=== PATIENT | female | born 1970 | race Caucasian/White ===

== ENCOUNTER 2020-01-14 06:20 | Observation (INO) ==
[2020-01-14] MEDS ORDERED: *HR* Methadone 5 MG TABLET PO ONE (06:40)
[2020-01-14] MEDS ORDERED: Gabapentin 300 MG CAPSULE PO ONE (06:40)
[2020-01-14] MEDS ORDERED: CeFAZolin Syr 2,000MG/20 ML 2,000 MG/20 ML SYRINGE IVPB ONE (07:03)
[2020-01-14] MEDS ORDERED: Promethazine Syrup 6.25 MG/5 ML PO PRN (07:04)
[2020-01-14] MEDS ORDERED: *HR* OxyCODONE Immed Rel 5 MG TABLET PO PRN (07:04)
[2020-01-14] MEDS ORDERED: *HR* Labetalol 20 MG/4 ML SYRINGE IVP PRN (07:04)
[2020-01-14] MEDS ORDERED: Ondansetron 4 MG/2 ML VIAL IVP PRN ×2 (07:04→12:28)
[2020-01-14] MEDS ORDERED: Mannitol 20% 100 GM/500 ML IV.SOLN IVC ONE (07:07)
[2020-01-14] MEDS ORDERED: *HR* Midazolam HCl 2 MG/2 ML VIAL ONE (07:12)
[2020-01-14] MEDS ORDERED: *HR* Propofol 200 MG/20 ML VIAL IVP ONE (07:12)
[2020-01-14] MEDS ORDERED: *HR* FentaNYL (PF) 100 MCG/2 ML VIAL ONE ×2 (07:12→08:32)
[2020-01-14] MEDS: Ringers Solution, Lactated 1,000 ML IVC SCH ×2 (07:27→09:07)
[2020-01-14] MEDS ORDERED: Ondansetron 4 MG/2 ML VIAL ONE (08:27)
[2020-01-14] MEDS ORDERED: Lidocaine -MPF 2% 2 ML VIAL ONE (08:27)
[2020-01-14] MEDS ORDERED: *HR* Rocuronium Bromide 50 MG/5 ML VIAL ONE (08:27)
[2020-01-14] MEDS ORDERED: Dexamethasone 4 MG/ML VIAL ONE (08:27)
[2020-01-14] MEDS ORDERED: *HR* HYDROMORPHONE 2 MG/ML VIAL ONE (10:17)
[2020-01-14] MEDS ORDERED: Neostigmine Methylsulfate 3 MG/3 ML SYRINGE ONE (10:42)
[2020-01-14] MEDS ORDERED: Insulin LISPRO 300 UNITS/3 ML VIAL SQ ONE (11:26)
[2020-01-14] MEDS: *HR* HYDROmorphone (PF) 1 MG/ML SYRINGE IVP PRN ×2 (11:33→11:43)
[2020-01-14] MEDS ORDERED: Acetaminophen 325 MG TABLET PO PRN (12:28)
[2020-01-14] MEDS ORDERED: Naloxone 0.4 MG/ML INJ IVP PRN (12:28)
[2020-01-14] MEDS ORDERED: *HR* OxyCODONE/APAP 5/325 TABLET PO PRN (12:28)
[2020-01-14] MEDS: Gabapentin 300 MG CAPSULE PO SCH ×3 (13:44→21:13)
[2020-01-14] MEDS: 0.9 % Sodium Chloride 1,000 ML IVC SCH ×2 (13:48→23:49)
[2020-01-14] MEDS: CeFAZolin 2 GM/120 ML BAG IVPB SCH (15:56)
[2020-01-14] MEDS: *HR* Heparin 5,000 UNIT/ML VIAL SQ SCH (17:07)
[2020-01-14] MEDS: Orphenadrine 100 MG TABLET.ER PO SCH (21:13)
[2020-01-15] MEDS: CeFAZolin 2 GM/120 ML BAG IVPB SCH (00:43)
[2020-01-15 04:46] LABS: Basophils % 0.3 %; Eosinophils # 0.1 K/mcL (0.0-0.6); Eosinophils % 1.1 %; Hematocrit 32.4 % (35.3-44.9); Hemoglobin 10.5 g/dL (11.5-15.4); Immature Granulocytes % 0.3 % (0-4); Lymphocytes # 3.8 K/mcL (0.6-4.6); Lymphocytes % 32.5 %; Mean Corpuscular HGB Conc 32.4 g/dL (31.6-35.5); Mean Corpuscular Hemoglobin 30.3 pg (28.0-33.3); Mean Corpuscular Volume 93.6 fL (83.0-100.0); Monocytes # 0.9 K/mcL (0.0-1.3); Monocytes % 7.4 %; Neutrophils # 6.9 K/mcL (1.6-8.9); Nucleated Red Blood Cells 0.2 /100 WBC (0); Platelet Count 318 K/mcL (140-400); Red Blood Count 3.46 M/mcL (3.82-4.97); Red Cell Distribution Width 12.8 % (11.5-14.5); Segmented Neutrophils % 58.4 %; White Blood Count 11.7 K/mcL (4.3-11.1)
[2020-01-15 05:06] LABS: BUN/Creatinine Ratio 14 (6-26); Blood Urea Nitrogen 11 mg/dL (6-20); Calcium 8.2 mg/dL (8.6-10.3); Carbon Dioxide 25 mEq/L (23-29); Chloride 104 mEq/L (98-107); Glucose 106 mg/dL (70-105); Osmolality,Calculated 278 (280-300); Potassium 3.7 mEq/L (3.5-5.1); Sodium 134 mEq/L (136-145); eGFR For African Americans > 60 (> 60); eGFR For Non-African Americans > 60 (> 60)
[2020-01-15] MEDS: *HR* Heparin 5,000 UNIT/ML VIAL SQ SCH ×2 (05:46→17:02)
[2020-01-15] MEDS ORDERED: Bisacodyl 10 MG RECTAL SUPPOSITORY RC PRN (07:16)
[2020-01-15] MEDS: Orphenadrine 100 MG TABLET.ER PO SCH ×2 (07:22→19:59)
[2020-01-15] MEDS: Gabapentin 300 MG CAPSULE PO SCH ×4 (07:22→19:59)
[2020-01-15] MEDS: 0.9 % Sodium Chloride 1,000 ML IVC SCH (22:10)
[2020-01-16] MEDS: *HR* Heparin 5,000 UNIT/ML VIAL SQ SCH (05:35)
[2020-01-16 06:31] LABS: Hemoglobin 11.5 g/dL (11.5-15.4)
[2020-01-16] MEDS: Orphenadrine 100 MG TABLET.ER PO SCH (09:41)
[2020-01-16] MEDS: Gabapentin 300 MG CAPSULE PO SCH (09:42)
[2020-01-16 10:25] VITALS: BP 138/86
== END 2020-01-16 14:03 | disposition home or self-care (01) ==
LOC: SAMDAY 06:20 → 3ANU 06:20
PROVIDERS: ADMIT Urology; ATTEND Urology

== ENCOUNTER 2020-02-26 18:12 | Observation (INO) ==
[2020-02-26] MEDS ORDERED: Piperacillin/Tazobactam 3.375 GM in Water for inj. (sterile) 20 ML IVP ONE (20:38)
[2020-02-26] MEDS ORDERED: Morphine Sulfate 2 MG/ML SYRINGE IVP ONE (20:40)
[2020-02-26] MEDS ORDERED: Ondansetron 4 MG/2 ML VIAL IVP ONE (20:40)
[2020-02-26 21:18] LABS: Basophils # 0.1 K/mcL (0.0-0.2); Basophils % 0.7 %; Eosinophils # 0.3 K/mcL (0.0-0.6); Eosinophils % 2.9 %; Hematocrit 39.9 % (35.3-44.9); Hemoglobin 13.3 g/dL (11.5-15.4); Immature Granulocytes % 0.2 % (0-4); Lymphocytes % 38.8 %; Mean Corpuscular HGB Conc 33.3 g/dL (31.6-35.5); Mean Corpuscular Hemoglobin 31.3 pg (28.0-33.3); Mean Corpuscular Volume 93.9 fL (83.0-100.0); Mean Platelet Volume 8.6 fL (9.4-12.4); Monocytes # 0.9 K/mcL (0.0-1.3); Monocytes % 8.9 %; Platelet Count 425 K/mcL (140-400); Red Blood Count 4.25 M/mcL (3.82-4.97); Red Cell Distribution Width 13.6 % (11.5-14.5); Segmented Neutrophils % 48.5 %; White Blood Count 10.4 K/mcL (4.3-11.1)
[2020-02-26 21:25] LABS: INR 1.1; Prothrombin Time 12.6 Seconds (9.4-12.1)
[2020-02-26 21:40] LABS: Alanine Aminotransferase 13 Units/L (7-52); Albumin/Globulin Ratio 1.2 (1.1-2.2); Alkaline Phosphatase 116 Units/L (34-104); Aspartate Amino Transferase 15 Units/L (13-39); BUN/Creatinine Ratio 16 (6-26); Bilirubin,Total 0.3 mg/dL (0.3-1.0); Blood Urea Nitrogen 15 mg/dL (6-20); Calcium 9.5 mg/dL (8.6-10.3); Carbon Dioxide 25 mEq/L (23-29); Chloride 96 mEq/L (98-107); Globulin 3.4 g/dL (2.4-3.5); Glucose 162 mg/dL (70-105); Osmolality,Calculated 272 (280-300); Sodium 129 mEq/L (136-145); Total Protein 7.4 g/dL (6.4-8.9); eGFR For African Americans > 60 (> 60); eGFR For Non-African Americans > 60 (> 60)
[2020-02-26 22:27] LABS: C-Reactive Protein < 5 mg/L (Less than 10)
[2020-02-26] MEDS ORDERED: 0.9 % Sodium Chloride 1,000 ML IVC SCH (23:30)
[2020-02-26] MEDS ORDERED: Dextrose Gel 15 GM/37.5 ML TUBE PO PRN ×2 (23:36)
[2020-02-26] MEDS ORDERED: D5% in Water 1,000 ML IVC PRN (23:36)
[2020-02-26] MEDS ORDERED: Naloxone 0.4 MG/ML INJ IVP PRN (23:36)
[2020-02-26] MEDS ORDERED: Ondansetron 4 MG/2 ML VIAL IVP PRN (23:36)
[2020-02-26] MEDS ORDERED: *HR* Dextrose 50 % in Water (Vial) 50 ML VIAL IVP PRN (23:36)
[2020-02-27] MEDS: *HR* HYDROmorphone (PF) 1 MG/ML SYRINGE IVP PRN ×3 (03:58→19:40)
[2020-02-27] MEDS: Piperacillin/Tazobactam 3.375 GM in 0.9 % Sodium Chloride Mini Bag 100 ML IVPB SCH ×3 (04:11→21:46)
[2020-02-27] MEDS: Insulin LISPRO 300 UNITS/3 ML VIAL SUBQ SCH ×4 (05:42→17:45)
[2020-02-27 05:59] LABS: Hematocrit 36.7 % (35.3-44.9); Hemoglobin 11.8 g/dL (11.5-15.4); Mean Corpuscular HGB Conc 32.2 g/dL (31.6-35.5); Mean Corpuscular Hemoglobin 29.9 pg (28.0-33.3); Mean Corpuscular Volume 93.1 fL (83.0-100.0); Mean Platelet Volume 8.5 fL (9.4-12.4); Platelet Count 355 K/mcL (140-400); Red Blood Count 3.94 M/mcL (3.82-4.97); Red Cell Distribution Width 13.4 % (11.5-14.5)
[2020-02-27 06:35] LABS: BUN/Creatinine Ratio 16 (6-26); Blood Urea Nitrogen 13 mg/dL (6-20); Carbon Dioxide 24 mEq/L (23-29); Chloride 101 mEq/L (98-107); Chol/HDL Ratio 6.6 (0-4.9); Cholesterol 232 mg/dL (< 200); Glucose 139 mg/dL (70-105); HDL Cholesterol 35 mg/dL (40-59); LDL Cholesterol,Calculated 142 mg/dL (< 100); Magnesium 1.6 mg/dL (1.6-2.6); Osmolality,Calculated 274 (280-300); Potassium 4.1 mEq/L (3.5-5.1); Sodium 131 mEq/L (136-145); Triglycerides 274 mg/dL (< 150); eGFR For African Americans > 60 (> 60); eGFR For Non-African Americans > 60 (> 60)
[2020-02-27 10:43] LABS: Estimated Average Glucose 232 mg/dl; Hemoglobin A1C 9.7 %
[2020-02-27] MEDS ORDERED: Isovue-370 500 ML BOTTLE IVP ONE (16:36)
[2020-02-27] MEDS ORDERED: Insulin LISPRO 300 UNITS/3 ML VIAL SUBQ SCH (22:45)
[2020-02-28] MEDS: *HR* HYDROmorphone (PF) 1 MG/ML SYRINGE IVP PRN ×2 (01:57→07:45)
[2020-02-28 02:35] LABS: Hematocrit 37.1 % (35.3-44.9); Hemoglobin 11.8 g/dL (11.5-15.4); Mean Corpuscular HGB Conc 31.8 g/dL (31.6-35.5); Mean Corpuscular Hemoglobin 30.4 pg (28.0-33.3); Mean Corpuscular Volume 95.6 fL (83.0-100.0); Mean Platelet Volume 8.8 fL (9.4-12.4); Platelet Count 369 K/mcL (140-400); Red Blood Count 3.88 M/mcL (3.82-4.97); Red Cell Distribution Width 13.5 % (11.5-14.5)
[2020-02-28 02:53] LABS: BUN/Creatinine Ratio 13 (6-26); Blood Urea Nitrogen 10 mg/dL (6-20); Calcium 8.9 mg/dL (8.6-10.3); Carbon Dioxide 24 mEq/L (23-29); Chloride 99 mEq/L (98-107); Glucose 157 mg/dL (70-105); Osmolality,Calculated 274 (280-300); Potassium 3.9 mEq/L (3.5-5.1); Sodium 131 mEq/L (136-145); eGFR For African Americans > 60 (> 60); eGFR For Non-African Americans > 60 (> 60)
[2020-02-28] MEDS: Piperacillin/Tazobactam 3.375 GM in 0.9 % Sodium Chloride Mini Bag 100 ML IVPB SCH (03:29)
[2020-02-28] MEDS: Insulin LISPRO 300 UNITS/3 ML VIAL SUBQ SCH ×2 (07:49→11:17)
[2020-02-28 14:11] VITALS: BP 146/76
[2020-02-29] MEDS ORDERED: *HR* Enoxaparin 40 MG/0.4 ML SYRINGE SQ SCH (06:00)
== END 2020-02-28 16:00 | disposition home or self-care (01) ==
LOC: 3ANU 18:12 → EMEROOARM 18:12 → 3ANU 02-27 01:09
PROVIDERS: ADMIT Student in an Organized Health Care Education/Training Program; ATTEND Student in an Organized Health Care Education/Training Program

== ENCOUNTER 2020-03-05 08:31 | Inpatient (IN) ==
[~2020-03-05 08:31] MED LIST: Acetaminophen IV 1,000 MG/100 ML BAG IVPB ONE; Famotidine 20 MG/2 ML VIAL IVP ONE
[2020-03-05] MEDS ORDERED: *HR* Midazolam HCl 2 MG/2 ML VIAL ONE (09:00)
[2020-03-05] MEDS ORDERED: *HR* Propofol 200 MG/20 ML VIAL IVP ONE (09:00)
[2020-03-05] MEDS ORDERED: *HR* FentaNYL (PF) 100 MCG/2 ML VIAL ONE (09:00)
[2020-03-05] MEDS ORDERED: *HR* Rocuronium Bromide 50 MG/5 ML VIAL ONE ×2 (09:00→12:06)
[2020-03-05] MEDS ORDERED: Lidocaine -MPF 2% 2 ML VIAL ONE (09:00)
[2020-03-05] MEDS ORDERED: Ondansetron 4 MG/2 ML VIAL ONE (09:00)
[2020-03-05] MEDS ORDERED: Lidocaine -MPF 4% 5 ML AMPUL ONE (09:00)
[2020-03-05] MEDS ORDERED: *HR* Succinylcholine 200 MG/10 ML VIAL IVP ONE (09:00)
[2020-03-05] MEDS ORDERED: CeFAZolin Syr 2,000MG/20 ML 2,000 MG/20 ML SYRINGE IVPB ONE (09:02)
[2020-03-05] MEDS ORDERED: Ringers Solution, Lactated 1,000 ML IVC SCH (09:15)
[2020-03-05] MEDS ORDERED: Heparin 1,000 UNITS/500 mL 500 ML ONE (09:36)
[2020-03-05] MEDS ORDERED: Vancomycin 1,000 MG, Sodium Chloride IRRigation 1,000 ML IR ONE (10:45)
[2020-03-05] MEDS ORDERED: Vancomycin 1,000 MG VIAL ONE (10:57)
[2020-03-05] MEDS ORDERED: *HR* Phenylephrine 10 MG/ML VIAL ONE (11:19)
[2020-03-05] MEDS ORDERED: Albumin Human 5% 12.5 GM/250 ML IV.SOLN ONE (11:26)
[2020-03-05] MEDS ORDERED: *HR* Heparin 5,000 UNIT/ML VIAL ONE ×2 (11:53→13:02)
[2020-03-05] MEDS ORDERED: *HR* HYDROMORPHONE 2 MG/ML VIAL ONE (13:42)
[2020-03-05] MEDS ORDERED: *HR* OxyCODONE Immed Rel 5 MG TABLET PO PRN (14:33)
[2020-03-05] MEDS ORDERED: Ondansetron 4 MG/2 ML VIAL IVP PRN ×2 (14:34→15:58)
[2020-03-05] MEDS: *HR* HYDROmorphone PF 0.5 MG/0.5 ML SYRINGE IVP PRN ×2 (14:40→14:54)
[2020-03-05] MEDS ORDERED: D5% in Water 1,000 ML IVC PRN (15:58)
[2020-03-05] MEDS ORDERED: *HR* Dextrose 50 % in Water (Vial) 50 ML VIAL IVP PRN (15:58)
[2020-03-05] MEDS ORDERED: Acetaminophen 325 MG TABLET PO PRN (15:58)
[2020-03-05] MEDS ORDERED: Dextrose Gel 15 GM/37.5 ML TUBE PO PRN ×2 (15:58)
[2020-03-05] MEDS ORDERED: Naloxone 0.4 MG/ML INJ IVP PRN (15:58)
[2020-03-05] MEDS ORDERED: *HR* Labetalol 20 MG/4 ML SYRINGE IVP PRN (15:58)
[2020-03-05] MEDS ORDERED: 0.9 % Sodium Chloride 1,000 ML IVC SCH (15:58)
[2020-03-05] MEDS: Gabapentin 300 MG CAPSULE PO SCH ×2 (16:27→19:32)
[2020-03-05] MEDS: *HR* Metoprolol 5 MG/5 ML VIAL IVP SCH ×2 (16:27→23:31)
[2020-03-05] MEDS: *HR* HYDROcodone/Acet 5/325 mg TABLET PO PRN ×2 (16:28→23:30)
[2020-03-05] MEDS: Insulin LISPRO 300 UNITS/3 ML VIAL SUBQ SCH (16:41)
[2020-03-05] MEDS: CeFAZolin 2 GM/120 ML BAG IVPB SCH (19:32)
[2020-03-05] MEDS: Orphenadrine 100 MG TABLET.ER PO SCH (19:32)
[2020-03-05] MEDS: *HR* OxyCODONE Immed Rel 5 MG TABLET PO PRN (19:32)
[2020-03-05] MEDS ORDERED: Insulin LISPRO 300 UNITS/3 ML VIAL SUBQ SCH (21:00)
[2020-03-06] MEDS: CeFAZolin 2 GM/120 ML BAG IVPB SCH (02:38)
[2020-03-06] MEDS: *HR* OxyCODONE Immed Rel 5 MG TABLET PO PRN (02:38)
[2020-03-06 04:35] LABS: Basophils % 0.2 %; Eosinophils % 0.3 %; Hematocrit 32.2 % (35.3-44.9); Hemoglobin 10.6 g/dL (11.5-15.4); Immature Granulocytes % 0.2 % (0-4); Lymphocytes # 2.2 K/mcL (0.6-4.6); Lymphocytes % 22.6 %; Mean Corpuscular HGB Conc 32.9 g/dL (31.6-35.5); Mean Corpuscular Hemoglobin 30.9 pg (28.0-33.3); Mean Corpuscular Volume 93.9 fL (83.0-100.0); Mean Platelet Volume 8.9 fL (9.4-12.4); Monocytes # 0.9 K/mcL (0.0-1.3); Monocytes % 9.1 %; Neutrophils # 6.5 K/mcL (1.6-8.9); Platelet Count 361 K/mcL (140-400); Red Blood Count 3.43 M/mcL (3.82-4.97); Red Cell Distribution Width 13.6 % (11.5-14.5); Segmented Neutrophils % 67.6 %; White Blood Count 9.6 K/mcL (4.3-11.1)
[2020-03-06 04:53] LABS: BUN/Creatinine Ratio 19 (6-26); Blood Urea Nitrogen 14 mg/dL (6-20); Calcium 8.3 mg/dL (8.6-10.3); Carbon Dioxide 24 mEq/L (23-29); Chloride 102 mEq/L (98-107); Glucose 277 mg/dL (70-105); Osmolality,Calculated 286 (280-300); Potassium 3.4 mEq/L (3.5-5.1); Sodium 133 mEq/L (136-145); eGFR For African Americans > 60 (> 60); eGFR For Non-African Americans > 60 (> 60)
[2020-03-06] MEDS: *HR* HYDROcodone/Acet 5/325 mg TABLET PO PRN ×2 (05:27→12:28)
[2020-03-06] MEDS: *HR* Metoprolol 5 MG/5 ML VIAL IVP SCH ×2 (05:27→11:15)
[2020-03-06] MEDS ORDERED: *HR* Heparin 5,000 UNIT/ML VIAL SQ SCH ×2 (06:00)
[2020-03-06] MEDS: Insulin LISPRO 300 UNITS/3 ML VIAL SUBQ SCH ×2 (07:58→11:15)
[2020-03-06] MEDS: Gabapentin 300 MG CAPSULE PO SCH ×2 (07:59→12:28)
[2020-03-06] MEDS: Orphenadrine 100 MG TABLET.ER PO SCH (07:59)
[2020-03-06 16:38] VITALS: BP 101/56
== END 2020-03-06 17:00 | disposition home or self-care (01) | DRG 272 ==
LOC: SAMDAY 08:31 → 2NNU 15:29
PROVIDERS: ADMIT Surgery; ATTEND Surgery

== ENCOUNTER 2020-03-23 17:44 | Inpatient (IN) ==
[2020-03-23] MEDS ORDERED: 0.9 % Sodium Chloride 1,000 ML IVC ONE (18:30)
[2020-03-23] MEDS ORDERED: Morphine Sulfate 2 MG/ML SYRINGE IVP ONE (18:32)
[2020-03-23] MEDS ORDERED: Ondansetron 4 MG/2 ML VIAL IVP ONE (18:32)
[2020-03-23 19:09] LABS: Basophils % 0.5 %; Eosinophils # 0.3 K/mcL (0.0-0.6); Eosinophils % 3.9 %; Hematocrit 35.2 % (35.3-44.9); Hemoglobin 11.3 g/dL (11.5-15.4); Immature Granulocytes % 0.1 % (0-4); Lymphocytes # 3.6 K/mcL (0.6-4.6); Lymphocytes % 47.2 %; Mean Corpuscular HGB Conc 32.1 g/dL (31.6-35.5); Mean Corpuscular Hemoglobin 29.4 pg (28.0-33.3); Mean Corpuscular Volume 91.7 fL (83.0-100.0); Mean Platelet Volume 8.7 fL (9.4-12.4); Monocytes # 0.6 K/mcL (0.0-1.3); Neutrophils # 3.1 K/mcL (1.6-8.9); Platelet Count 456 K/mcL (140-400); Red Blood Count 3.84 M/mcL (3.82-4.97); Red Cell Distribution Width 13.4 % (11.5-14.5); Segmented Neutrophils % 40.3 %; White Blood Count 7.6 K/mcL (4.3-11.1)
[2020-03-23 19:30] LABS: Alanine Aminotransferase 9 Units/L (7-52); Albumin 3.4 g/dL (3.5-5.7); Alkaline Phosphatase 107 Units/L (34-104); Aspartate Amino Transferase 13 Units/L (13-39); BUN/Creatinine Ratio 13 (6-26); Bilirubin,Total 0.2 mg/dL (0.3-1.0); Blood Urea Nitrogen 14 mg/dL (6-20); Calcium 9.1 mg/dL (8.6-10.3); Carbon Dioxide 28 mEq/L (23-29); Chloride 98 mEq/L (98-107); Globulin 3.5 g/dL (2.4-3.5); Glucose 255 mg/dL (70-105); Osmolality,Calculated 291 (280-300); Potassium 3.7 mEq/L (3.5-5.1); Sodium 136 mEq/L (136-145); Total Protein 6.9 g/dL (6.4-8.9); eGFR For African Americans > 60 (> 60); eGFR For Non-African Americans 52 (> 60)
[2020-03-23] MEDS ORDERED: Naloxone 0.4 MG/ML INJ IVP PRN (19:51)
[2020-03-23] MEDS ORDERED: Ondansetron 4 MG/2 ML VIAL IVP PRN (19:51)
[2020-03-23] MEDS ORDERED: Piperacillin/Tazobactam 3.375 GM in Water for inj. (sterile) 20 ML IVP ONE (19:52)
[2020-03-23] MEDS ORDERED: 0.9 % Sodium Chloride 1,000 ML IVC SCH (20:00)
[2020-03-23] MEDS ORDERED: D5% in Water 1,000 ML IVC PRN (20:21)
[2020-03-23] MEDS ORDERED: *HR* Dextrose 50 % in Water (Vial) 50 ML VIAL IVP PRN (20:21)
[2020-03-23] MEDS ORDERED: Dextrose Gel 15 GM/37.5 ML TUBE PO PRN ×2 (20:21)
[2020-03-23] MEDS ORDERED: *HR* Heparin 5,000 UNIT/ML VIAL SQ ONE (22:00)
[2020-03-24] MEDS: Insulin LISPRO 300 UNITS/3 ML VIAL SUBQ SCH ×4 (00:22→18:00)
[2020-03-24 01:31] LABS: Basophils # 0.1 K/mcL (0.0-0.2); Basophils % 0.5 %; Eosinophils # 0.4 K/mcL (0.0-0.6); Eosinophils % 3.6 %; Hemoglobin 12.1 g/dL (11.5-15.4); Immature Granulocytes % 0.3 % (0-4); Lymphocytes % 44.6 %; Mean Corpuscular HGB Conc 31.8 g/dL (31.6-35.5); Mean Corpuscular Hemoglobin 29.5 pg (28.0-33.3); Mean Corpuscular Volume 92.7 fL (83.0-100.0); Mean Platelet Volume 9.1 fL (9.4-12.4); Monocytes # 0.7 K/mcL (0.0-1.3); Monocytes % 6.3 %; Platelet Count 479 K/mcL (140-400); Red Cell Distribution Width 13.4 % (11.5-14.5); Segmented Neutrophils % 44.7 %; White Blood Count 11.1 K/mcL (4.3-11.1)
[2020-03-24 01:51] LABS: Platelet Estimate Normal (Normal); Reactive Lymphocytes Present (Not Present)
[2020-03-24 01:52] LABS: Anisocytosis 1+ (Not Present)
[2020-03-24 01:53] LABS: BUN/Creatinine Ratio 14 (6-26); Blood Urea Nitrogen 12 mg/dL (6-20); Calcium 8.9 mg/dL (8.6-10.3); Carbon Dioxide 26 mEq/L (23-29); Chloride 101 mEq/L (98-107); Glucose 144 mg/dL (70-105); Osmolality,Calculated 284 (280-300); Sodium 136 mEq/L (136-145); eGFR For African Americans > 60 (> 60); eGFR For Non-African Americans > 60 (> 60)
[2020-03-24] MEDS: Piperacillin/Tazobactam 3.375 GM in 0.9 % Sodium Chloride Mini Bag 100 ML IVPB SCH ×3 (02:00→18:00)
[2020-03-24] MEDS: Gabapentin 300 MG CAPSULE PO SCH ×3 (14:27→21:30)
[2020-03-24] MEDS: *HR* Heparin 5,000 UNIT/ML VIAL SQ SCH ×2 (14:28→21:30)
[2020-03-25] MEDS: Insulin LISPRO 300 UNITS/3 ML VIAL SUBQ SCH ×4 (00:59→16:21)
[2020-03-25 03:39] LABS: Hemoglobin 11.2 g/dL (11.5-15.4); Mean Corpuscular Hemoglobin 29.9 pg (28.0-33.3); Mean Corpuscular Volume 93.3 fL (83.0-100.0); Mean Platelet Volume 8.4 fL (9.4-12.4); Platelet Count 402 K/mcL (140-400); Red Blood Count 3.75 M/mcL (3.82-4.97); Red Cell Distribution Width 13.2 % (11.5-14.5); White Blood Count 7.9 K/mcL (4.3-11.1)
[2020-03-25] MEDS: Piperacillin/Tazobactam 3.375 GM in 0.9 % Sodium Chloride Mini Bag 100 ML IVPB SCH ×3 (03:39→18:23)
[2020-03-25 04:00] LABS: BUN/Creatinine Ratio 10 (6-26); Blood Urea Nitrogen 6 mg/dL (6-20); Calcium 8.9 mg/dL (8.6-10.3); Carbon Dioxide 27 mEq/L (23-29); Chloride 102 mEq/L (98-107); Glucose 144 mg/dL (70-105); Magnesium 1.5 mg/dL (1.6-2.6); Osmolality,Calculated 280 (280-300); Potassium 3.6 mEq/L (3.5-5.1); Sodium 135 mEq/L (136-145); eGFR For African Americans > 60 (> 60); eGFR For Non-African Americans > 60 (> 60)
[2020-03-25] MEDS: *HR* Heparin 5,000 UNIT/ML VIAL SQ SCH ×3 (05:31→19:48)
[2020-03-25] MEDS ORDERED: Bupivacaine-MPF 0.25% 10 ML VIAL ONE (07:37)
[2020-03-25] MEDS ORDERED: Lidocaine 1% 0 ML ONE (07:37)
[2020-03-25] MEDS ORDERED: Lidocaine -MPF 2% 2 ML VIAL ONE ×2 (07:40→08:38)
[2020-03-25] MEDS ORDERED: *HR* Succinylcholine 200 MG/10 ML VIAL IVP ONE (07:47)
[2020-03-25] MEDS ORDERED: *HR* Propofol 200 MG/20 ML VIAL IVP ONE (08:38)
[2020-03-25] MEDS ORDERED: *HR* FentaNYL (PF) 100 MCG/2 ML VIAL ONE (08:38)
[2020-03-25] MEDS ORDERED: Ondansetron 4 MG/2 ML VIAL IVP PRN (09:03)
[2020-03-25] MEDS ORDERED: *HR* OxyCODONE Immed Rel 5 MG TABLET PO PRN (09:03)
[2020-03-25] MEDS ORDERED: *HR* HYDROmorphone PF 0.5 MG/0.5 ML SYRINGE IVP PRN (09:03)
[2020-03-25] MEDS ORDERED: Acetaminophen IV 1,000 MG/100 ML BAG IVPB ONE ×2 (09:24→09:31)
[2020-03-25] MEDS: Gabapentin 300 MG CAPSULE PO SCH ×4 (10:23→19:47)
[2020-03-25] MEDS ORDERED: Insulin LISPRO 300 UNITS/3 ML VIAL SUBQ SCH (21:00)
[2020-03-26 01:24] LABS: Hematocrit 34.3 % (35.3-44.9); Mean Corpuscular HGB Conc 32.1 g/dL (31.6-35.5); Mean Corpuscular Hemoglobin 29.6 pg (28.0-33.3); Mean Corpuscular Volume 92.5 fL (83.0-100.0); Mean Platelet Volume 8.8 fL (9.4-12.4); Platelet Count 436 K/mcL (140-400); Red Blood Count 3.71 M/mcL (3.82-4.97); Red Cell Distribution Width 13.3 % (11.5-14.5); White Blood Count 9.4 K/mcL (4.3-11.1)
[2020-03-26 01:42] LABS: BUN/Creatinine Ratio 13 (6-26); Blood Urea Nitrogen 10 mg/dL (6-20); Calcium 8.8 mg/dL (8.6-10.3); Carbon Dioxide 27 mEq/L (23-29); Chloride 97 mEq/L (98-107); Glucose 288 mg/dL (70-105); Magnesium 1.7 mg/dL (1.6-2.6); Osmolality,Calculated 282 (280-300); Potassium 4.4 mEq/L (3.5-5.1); Sodium 131 mEq/L (136-145); eGFR For African Americans > 60 (> 60); eGFR For Non-African Americans > 60 (> 60)
[2020-03-26] MEDS: Piperacillin/Tazobactam 3.375 GM in 0.9 % Sodium Chloride Mini Bag 100 ML IVPB SCH ×2 (02:57→13:04)
[2020-03-26] MEDS: *HR* Heparin 5,000 UNIT/ML VIAL SQ SCH ×2 (05:14→13:26)
[2020-03-26] MEDS: Gabapentin 300 MG CAPSULE PO SCH ×3 (07:38→16:44)
[2020-03-26] MEDS: Insulin LISPRO 300 UNITS/3 ML VIAL SUBQ SCH ×3 (08:55→16:46)
[2020-03-26 16:00] VITALS: BP 153/92
== END 2020-03-26 17:07 | disposition home or self-care (01) | DRG 257 ==
LOC: 3NENU 17:44 → EMEROOARM 17:44 → SUATTDRO 20:13 → 3NENU 21:27
PROVIDERS: ADMIT Family Medicine; ATTEND Internal Medicine

== ENCOUNTER 2020-05-21 21:11 | Inpatient (IN) ==
[2020-05-21] MEDS ORDERED: Isovue-370 500 ML BOTTLE IVP ONE (21:34)
[2020-05-21] MEDS ORDERED: *HR* OxyCODONE/APAP 7.5/325 TABLET PO STA (22:08)
[2020-05-21] MEDS ORDERED: Gabapentin 300 MG CAPSULE PO ONE (22:09)
[2020-05-21 22:10] LABS: Basophils % 0.4 %; Eosinophils # 0.2 K/mcL (0.0-0.6); Eosinophils % 1.9 %; Hematocrit 41.2 % (35.3-44.9); Hemoglobin 13.3 g/dL (11.5-15.4); Immature Granulocytes % 0.2 % (0-4); Lymphocytes # 3.2 K/mcL (0.6-4.6); Lymphocytes % 31.2 %; Mean Corpuscular HGB Conc 32.3 g/dL (31.6-35.5); Mean Corpuscular Hemoglobin 29.2 pg (28.0-33.3); Mean Corpuscular Volume 90.5 fL (83.0-100.0); Monocytes # 0.7 K/mcL (0.0-1.3); Monocytes % 7.2 %; Platelet Count 323 K/mcL (140-400); Red Blood Count 4.55 M/mcL (3.82-4.97); Red Cell Distribution Width 14.4 % (11.5-14.5); Segmented Neutrophils % 59.1 %; White Blood Count 10.1 K/mcL (4.3-11.1)
[2020-05-21 22:18] LABS: INR 1.1; Prothrombin Time 12.4 Seconds (9.4-12.1)
[2020-05-21 22:30] LABS: Activated Partial Thrombo Time 31.4 Seconds (26.0-36.0); Alanine Aminotransferase 11 Units/L (7-52); Albumin 3.9 g/dL (3.5-5.7); Albumin/Globulin Ratio 1.1 (1.1-2.2); Alkaline Phosphatase 94 Units/L (34-104); Aspartate Amino Transferase 10 Units/L (13-39); BUN/Creatinine Ratio 16 (6-26); Bilirubin,Indirect 0.3 mg/dL (0.0-1.0); Bilirubin,Total 0.3 mg/dL (0.3-1.0); Blood Urea Nitrogen 12 mg/dL (6-20); Calcium 9.5 mg/dL (8.6-10.3); Carbon Dioxide 27 mEq/L (23-29); Chloride 100 mEq/L (98-107); Globulin 3.5 g/dL (2.4-3.5); Glucose 271 mg/dL (70-105); Osmolality,Calculated 287 (280-300); Potassium 4.3 mEq/L (3.5-5.1); Sodium 134 mEq/L (136-145); Total Protein 7.4 g/dL (6.4-8.9); eGFR For African Americans > 60 (> 60); eGFR For Non-African Americans > 60 (> 60)
[2020-05-21] MEDS ORDERED: *HR* HYDROmorphone (PF) 1 MG/ML SYRINGE IVP STA (23:54)
[2020-05-22] MEDS ORDERED: Ondansetron ODT 4 MG TAB.RAPDIS SL PRN (02:20)
[2020-05-22] MEDS ORDERED: Melatonin 3 MG TABLET PO PRN ×2 (02:20→19:43)
[2020-05-22] MEDS ORDERED: Naloxone 0.4 MG/ML INJ IVP PRN ×3 (02:20→19:43)
[2020-05-22] MEDS ORDERED: Dextrose Gel 15 GM/37.5 ML TUBE PO PRN ×4 (02:24→19:43)
[2020-05-22] MEDS ORDERED: D5% in Water 1,000 ML IVC PRN ×2 (02:24→19:43)
[2020-05-22] MEDS ORDERED: *HR* Dextrose 50 % in Water (Vial) 50 ML VIAL IVP PRN ×2 (02:24→19:43)
[2020-05-22 05:38] LABS: Basophils # 0.1 K/mcL (0.0-0.2); Basophils % 0.5 %; Eosinophils # 0.2 K/mcL (0.0-0.6); Eosinophils % 1.9 %; Hematocrit 42.2 % (35.3-44.9); Hemoglobin 13.2 g/dL (11.5-15.4); Immature Granulocytes % 0.3 % (0-4); Lymphocytes # 4.4 K/mcL (0.6-4.6); Lymphocytes % 38.6 %; Mean Corpuscular HGB Conc 31.3 g/dL (31.6-35.5); Mean Corpuscular Hemoglobin 29.7 pg (28.0-33.3); Mean Corpuscular Volume 94.8 fL (83.0-100.0); Mean Platelet Volume 10.3 fL (9.4-12.4); Monocytes # 0.7 K/mcL (0.0-1.3); Monocytes % 6.5 %; Neutrophils # 5.9 K/mcL (1.6-8.9); Platelet Count 201 K/mcL (140-400); Red Blood Count 4.45 M/mcL (3.82-4.97); Red Cell Distribution Width 14.6 % (11.5-14.5); Segmented Neutrophils % 52.2 %; White Blood Count 11.3 K/mcL (4.3-11.1)
[2020-05-22 05:50] LABS: Prothrombin Time 12.1 Seconds (9.4-12.1)
[2020-05-22 05:52] LABS: Activated Partial Thrombo Time 30.3 Seconds (26.0-36.0)
[2020-05-22] MEDS: Insulin LISPRO 300 UNITS/3 ML VIAL SUBQ SCH ×2 (05:58→11:58)
[2020-05-22] MEDS ORDERED: *HR* HYDROmorphone (PF) 1 MG/ML SYRINGE IVP PRN (06:01)
[2020-05-22 07:04] LABS: BUN/Creatinine Ratio 17 (6-26); Blood Urea Nitrogen 11 mg/dL (6-20); Calcium 9.1 mg/dL (8.6-10.3); Carbon Dioxide 23 mEq/L (23-29); Chloride 101 mEq/L (98-107); Glucose 186 mg/dL (70-105); Osmolality,Calculated 276 (280-300); Potassium 4.3 mEq/L (3.5-5.1); Sodium 131 mEq/L (136-145); eGFR For African Americans > 60 (> 60); eGFR For Non-African Americans > 60 (> 60)
[2020-05-22 08:52] LABS: Estimated Average Glucose 226 mg/dl; Hemoglobin A1C 9.5 %
[2020-05-22] MEDS ORDERED: *HR* Heparin 5,000 UNIT/ML VIAL IVP PRN ×2 (08:52)
[2020-05-22] MEDS ORDERED: *HR* Heparin 5,000 UNIT/ML VIAL IVP ONE (08:52)
[2020-05-22] MEDS ORDERED: Heparin 25,000UNIT/250ML 1/2NS 25,000 UNIT/250 ML IV.SOLN IVC SCH (09:45)
[2020-05-22 10:45] LABS: Hematocrit 38.8 % (35.3-44.9); Hemoglobin 12.6 g/dL (11.5-15.4); Mean Corpuscular HGB Conc 32.5 g/dL (31.6-35.5); Mean Corpuscular Hemoglobin 29.6 pg (28.0-33.3); Mean Corpuscular Volume 91.3 fL (83.0-100.0); Mean Platelet Volume 9.2 fL (9.4-12.4); Platelet Count 312 K/mcL (140-400); Red Blood Count 4.25 M/mcL (3.82-4.97); Red Cell Distribution Width 14.5 % (11.5-14.5); White Blood Count 8.3 K/mcL (4.3-11.1)
[2020-05-22 11:23] LABS: Influenza A PCR Negative (Negative); Influenza B PCR Negative (Negative); Resp. Syncytial Virus PCR Negative (Negative)
[2020-05-22 11:49] LABS: SARS-CoV-2 by PCR (In House) Negative (Negative)
[2020-05-22] MEDS ORDERED: Lidocaine 1% 20 ML MDV ONE (14:47)
[2020-05-22] MEDS ORDERED: Heparin 1,000 UNITS/500 mL 500 ML ONE (14:47)
[2020-05-22] MEDS ORDERED: Vancomycin 1,000 MG VIAL ONE (14:48)
[2020-05-22] MEDS ORDERED: *HR* Phenylephrine 10 MG/ML VIAL ONE (15:07)
[2020-05-22] MEDS ORDERED: EPHEDrine 50 MG/ML VIAL ONE (15:07)
[2020-05-22] MEDS ORDERED: *HR* Propofol 200 MG/20 ML VIAL IVP ONE (15:16)
[2020-05-22] MEDS ORDERED: *HR* Rocuronium Bromide 50 MG/5 ML VIAL ONE (15:16)
[2020-05-22] MEDS ORDERED: Lidocaine -MPF 2% 2 ML VIAL ONE (15:16)
[2020-05-22] MEDS ORDERED: *HR* Midazolam HCl 2 MG/2 ML VIAL ONE (15:16)
[2020-05-22] MEDS ORDERED: Dexamethasone 4 MG/ML VIAL ONE (15:16)
[2020-05-22] MEDS ORDERED: Ondansetron 4 MG/2 ML VIAL ONE ×2 (15:16→19:49)
[2020-05-22] MEDS ORDERED: *HR* Succinylcholine 200 MG/10 ML VIAL IVP ONE (15:16)
[2020-05-22] MEDS ORDERED: *HR* FentaNYL (PF) 100 MCG/2 ML VIAL ONE (15:16)
[2020-05-22] MEDS ORDERED: Acetaminophen IV 1,000 MG/100 ML BAG IVPB ONE (15:27)
[2020-05-22] MEDS ORDERED: Vancomycin 1,250 MG/262.5 ML IV.SOLN IVPB ONE (15:36)
[2020-05-22] MEDS ORDERED: CeFAZolin Syr 2,000MG/20 ML 2,000 MG/20 ML SYRINGE IVPB ONE (15:37)
[2020-05-22] MEDS ORDERED: *HR* HYDROMORPHONE 2 MG/ML VIAL ONE (16:49)
[2020-05-22] MEDS ORDERED: Gabapentin 300 MG CAPSULE PO SCH (17:00)
[2020-05-22] MEDS ORDERED: *HR* Heparin 5,000 UNIT/ML VIAL ONE (17:09)
[2020-05-22] MEDS ORDERED: Neostigmine Methylsulfate 3 MG/3 ML SYRINGE ONE (17:51)
[2020-05-22] MEDS ORDERED: *HR* FentaNYL (PF) 100 MCG/2 ML VIAL IVP PRN (18:21)
[2020-05-22] MEDS ORDERED: Albuterol 2.5 MG/3 ML NEBULIZER IH PRN (18:21)
[2020-05-22] MEDS ORDERED: Nitroglycerin 0.4 MG TAB.SUBL SL PRN (18:21)
[2020-05-22] MEDS ORDERED: Ipratropium Neb 0.5 MG NEBULIZER IH PRN (18:21)
[2020-05-22] MEDS ORDERED: *HR* Promethazine 25 MG/ML VIAL IM PRN (18:22)
[2020-05-22] MEDS ORDERED: *HR* HYDROmorphone (PF) 1 MG/ML SYRINGE ONE (18:28)
[2020-05-22] MEDS: *HR* HYDROmorphone PF 0.5 MG/0.5 ML SYRINGE IVP PRN ×3 (18:29→18:45)
[2020-05-22] MEDS ORDERED: *HR* OxyCODONE Immed Rel 5 MG TABLET PO ONE (18:57)
[2020-05-22] MEDS ORDERED: Ondansetron 4 MG/2 ML VIAL IVP PRN (19:43)
[2020-05-22] MEDS ORDERED: 0.9 % Sodium Chloride 1,000 ML IVC SCH (19:43)
[2020-05-22] MEDS ORDERED: *HR* Labetalol 20 MG/4 ML SYRINGE IVP PRN (19:43)
[2020-05-22] MEDS ORDERED: Acetaminophen 325 MG TABLET PO PRN (19:43)
[2020-05-22] MEDS: Gabapentin 300 MG CAPSULE PO SCH (20:28)
[2020-05-22] MEDS: Nicotine 21 MG PATCH.TD24 TD SCH (20:39)
[2020-05-22] MEDS: *HR* OxyCODONE Immed Rel 5 MG TABLET PO PRN (20:40)
[2020-05-22] MEDS ORDERED: Orphenadrine 100 MG TABLET.ER PO SCH (21:00)
[2020-05-23] MEDS: Insulin LISPRO 300 UNITS/3 ML VIAL SUBQ SCH ×4 (00:12→18:28)
[2020-05-23] MEDS: *HR* Metoprolol 5 MG/5 ML VIAL IVP SCH ×4 (00:12→18:21)
[2020-05-23] MEDS: CeFAZolin 2 GM/120 ML BAG IVPB SCH ×2 (00:13→09:20)
[2020-05-23] MEDS: *HR* HYDROcodone/Acet 5/325 mg TABLET PO PRN ×2 (00:16→15:21)
[2020-05-23 01:51] LABS: BUN/Creatinine Ratio 15 (6-26); Blood Urea Nitrogen 10 mg/dL (6-20); Calcium 8.2 mg/dL (8.6-10.3); Carbon Dioxide 20 mEq/L (23-29); Chloride 104 mEq/L (98-107); Glucose 114 mg/dL (70-105); Osmolality,Calculated 270 (280-300); Potassium 4.4 mEq/L (3.5-5.1); Sodium 130 mEq/L (136-145); eGFR For African Americans > 60 (> 60); eGFR For Non-African Americans > 60 (> 60)
[2020-05-23 01:56] LABS: Basophils % 0.4 %; Mean Platelet Volume 9.5 fL (9.4-12.4); Monocytes % 5.2 %; Red Blood Count 4.16 M/mcL (3.82-4.97); Red Cell Distribution Width 14.6 % (11.5-14.5)
[2020-05-23 01:58] LABS: Eosinophils # 0.2 K/mcL (0.0-0.6); Eosinophils % 1.8 %; Hematocrit 38.3 % (35.3-44.9); Hemoglobin 12.2 g/dL (11.5-15.4); Immature Granulocytes % 0.2 % (0-4); Immature Platelets 2.3 % (1.1-6.1); Lymphocytes # 2.6 K/mcL (0.6-4.6); Lymphocytes % 28.4 %; Mean Corpuscular HGB Conc 31.9 g/dL (31.6-35.5); Mean Corpuscular Hemoglobin 29.3 pg (28.0-33.3); Mean Corpuscular Volume 92.1 fL (83.0-100.0); Monocytes # 0.5 K/mcL (0.0-1.3); Neutrophils # 5.8 K/mcL (1.6-8.9); Platelet Count 221 K/mcL (140-400); White Blood Count 9.1 K/mcL (4.3-11.1)
[2020-05-23] MEDS ORDERED: Vancomycin 1,250 MG/262.5 ML IV.SOLN IVPB ONE (04:00)
[2020-05-23] MEDS: *HR* OxyCODONE Immed Rel 5 MG TABLET PO PRN ×3 (05:07→18:26)
[2020-05-23] MEDS ORDERED: *HR* Heparin 5,000 UNIT/ML VIAL SQ SCH (06:00)
[2020-05-23] MEDS: Gabapentin 300 MG CAPSULE PO SCH ×3 (09:19→18:24)
[2020-05-23] MEDS: Nicotine 21 MG PATCH.TD24 TD SCH (09:20)
[2020-05-23 16:41] VITALS: BP 151/91
== END 2020-05-23 19:10 | disposition home or self-care (01) | DRG 254 ==
LOC: EMEROOARM 21:11 → 3ANU 21:11 → SUATTDRO 05-22 01:30 → 3ANU 05-22 02:36 → 2NNU 05-22 17:17
PROVIDERS: ADMIT Internal Medicine; ATTEND Student in an Organized Health Care Education/Training Program